=== PATIENT | male | born 1965 | race Caucasian/White ===

== ENCOUNTER 2016-09-27 22:16 | Emergency (ER) | payer BC ==
[2016-09-27 22:59] LABS: ABSOLUTE BASOPHIL COUNT 0 /CUMM (0.0-0.2); ABSOLUTE EOSINOPHIL COUNT 0 /CUMM (0.0-0.7); ABSOLUTE GRANULOCYTE CT 11.1 /CUMM (1.4-6.5); ABSOLUTE LYMPH COUNT 0.7 /CUMM (1.2-3.4); BASOPHIL % 0.1 % (0.0-2.0); EOSINOPHIL % 0.1 % (0-5); MEAN CORPUSCULAR HGB 30.1 PG (27.0-31.0); MEAN CORPUSCULAR HGB CONC 34.2 G/DL (33.0-37.0); MEAN CORPUSCULAR VOLUME 87.8 FL (80.0-94.0); MEAN PLATELET VOLUME 8.5 FL (7.4-10.4); PLATELET COUNT 188 /CUMM (130-400); RBC DISTRIBUTION WIDTH 12.4 % (11.5-14.5); RED BLOOD CELL CT 5.01 /CUMM (4.70-6.10); WHITE BLOOD CELL COUNT 12.8 /CUMM (4.8-10.8)
--- NOTE | 2016-09-27 23:32 | ED GI/GU/ABDOMINAL COMPLAINT ---
History of Present Illness General Chief Complaint: Abdominal Pain/Flank Pain Stated Complaint: " LT FLANK RADIATES TO GROIN,+N, X3DAYS" Source: patient, family, old records Exam Limitations: no limitations Vital Signs & Intake/Output Vital Signs & Intake/Output Vital Signs Date Time Temp Pulse Resp B/P Pulse O2 O2 Flow FiO2 Ox Delivery Rate 09/28 0020 Room Air 09/27 2222 97.9 114 22 168/103 97 Room Air ED Intake and Output 09/28 0000 09/27 1200 Intake Total 1000 Output Total Balance 1000 Intake, IV 1000 Patient 175 lb Weight Allergies Coded Allergies: No Known Allergies (09/27/16) Triage Note: PER PT PAIN TO L FLANK RADIATING TO GROIN X 3 DAYS HX OF KIDNEY STONES, X 3 DAYS. Triage Nurses Notes Reviewed? yes Onset: 4 days Duration: day(s):, continues in ED, waxing and waning Timing: recent history Quality/Severity: aching, moderate, sharpness, severe Location: left flank Radiation: groin Activities at Onset: none Prior Abdominal Problems: similar symptoms Past Sexual History: Unobtainable at this time No Modifying Factors: none Associated Symptoms: abdominal pain, diaphoresis, loss of appetite, nausea/ vomiting HPI: 4 days prior to admission patient complains of left flank pain described as moderate to severe sharp waxing and waning radiating to groin associated with nausea similar to previous kidney stone pain. He denies fever chills chest pain cough shortness of breath vomiting diarrhea headache dysuria rash bleeding. Past History Travel History Traveled to [place] past 21 day No Medical History Any Pertinent Medical History? see below for history Neurological: NONE EENT: NONE Cardiovascular: NONE Respiratory: NONE Gastrointestinal: NONE Hepatic: NONE Renal: nephrolithiasis Musculoskeletal: NONE Psychiatric: NONE Endocrine: NONE Surgical History Surgical History: non-contributory Psychosocial History What is your primary language Chilean Tobacco Use: Never used Family History Hx Contributory? No Review of Systems Review of Systems Constitutional: Reports: no symptoms. EENTM: Reports: no symptoms. Respiratory: Reports: no symptoms. Cardiovascular: Reports: no symptoms. GI: Reports: see HPI, abdominal pain, nausea. Genitourinary: Reports: no symptoms. Musculoskeletal: Reports: no symptoms. Skin: Reports: no symptoms. Neurological/Psychological: Reports: no symptoms. Hematologic/Endocrine: Reports: no symptoms. Immunologic/Allergic: Reports: no symptoms. All Other Systems: Reviewed and Negative Physical Exam Physical Exam General Appearance: well developed/nourished, alert, awake, anxious, moderate distress, thin Head: atraumatic, normal appearance Eyes: Bilateral: normal appearance, PERRL, EOMI, normal inspection. Ears, Nose, Throat, Mouth: hearing grossly normal, moist mucous membrane Neck: normal inspection, supple, full range of motion, normal alignment Respiratory: normal breath sounds, chest non-tender, no respiratory distress, quiet respiration, lungs clear Cardiovascular: regular rate/rhythm, normal peripheral pulses, norml femoral pulses equa Peripheral Pulses: 4+ carotid (R), 4+ carotid (L) Gastrointestinal: normal bowel sounds, soft, non-tender, no organomegaly Male Genitals: normal genitalia Back: normal inspection, normal range of motion Extremities: normal range of motion, no ligament instability Neurologic/Psych: no motor/sensory deficits, awake, alert, oriented x 3, normal gait, normal mood/affect, 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 No Severe Sepsis Present: No Septic Shock Present: No Progress Differential Diagnosis: diverticulitis, gastritis, ureterolithiasis, UTI/pyelo Plan of Care: Orders Procedure Date/time Status URINALYSIS 09/27 2237 Complete COMPREHENSIVE METABOLIC PANEL 09/27 2237 Complete CBC WITHOUT DIFFERENTIAL 09/27 2237 Complete Current Medications Sig/Aditya Start time Last Medication Dose Stop Time Status Admin Morphine Sulfate 4 MG ONCE ONE 09/28 013 UNVr (Morphine) 09/28 0131 Laboratory Tests 09/28/16 0025: Urinalysis MOD H, Urine Color YEL, Urine Clarity HAZY H, Urine pH 5.5, Ur Specific [place] >= 1.030, Urine Protein 30 H, Urine Ketones 15 H, Urine Nitrite NEG, Urine Bilirubin NEG@ICTO, Urine Urobilinogen 0.2, Ur Leukocyte Esterase NEG, Ur Microscopic SEDIMENT EXAMINED, Urine RBC >75 H, Urine WBC 3-5 H, Ur Epithelial Cells RARE, Granular Casts RARE H, Urine Mucus FEW, Urine Hemoglobin LARGE H, Urine Glucose NEG 09/27/16 2317: Anion Gap 15, Estimated GFR 35 L, BUN/Creatinine Ratio 12.0, Glucose 111 H, Calcium 9.0, Total Bilirubin 1.3, AST 23, ALT 27, Alkaline Phosphatase 51, Total Protein 6.5, Albumin 3.6, Globulin 2.9, Albumin/Globulin Ratio 1.2 09/27/167: CBC w Diff NO MAN DIFF REQ, RBC 5.01, MCV 87.8, MCH 30.1, RDW 12.4, MPV 8.5, Gran % 87.0 H, Lymphocytes % 5.3 L, Monocytes % 7.5, Eosinophils % 0.1, Basophils % 0.1, Absolute Granulocytes 11.1 H, Absolute Lymphocytes 0.7 L, Absolute Monocytes 1.0 H, Absolute Eosinophils 0, Absolute Basophils 0, PUBS MCHC 34.2 Diagnostic Imaging: Viewed by Me: CT Scan. Discussed w/RAD: CT Scan. Radiology Impression: 1. Mild left-sided hydroureteronephrosis and perinephric stranding as a result of a 6 mm stone in the proximal left ureter. 2. Small nonobstructing bilateral renal stones. 3. Gallstones. 4. Diverticular disease of colon without evidence of acute diverticulitis. Initial ED EKG: none Departure Departure Time of Disposition: 120 Disposition: HOME OR SELF CARE Condition: Stable Clinical Impression Primary Impression: Renal colic on left side Secondary Impressions: Prerenal azotemia Referrals: CHERRY PORTILLO,SAM Snider (PCP/Family) ALYSSA SHEEHAN MD Call for urology follow up Departure Forms: Customer Survey General Discharge Information Prescriptions: Current Visit Scripts Tamsulosin HCl (Flomax) 1 CAP PO DAILY #15 CAP Ibuprofen 1 TAB PO Q6PRN PRN pain #50 TAB Oxycodone HCl/Acetaminophen (Percocet 5-325 MG Tablet) 1-2 TAB PO Q6P PRN PAIN #20 TAB Ondansetron (Zofran Odt) 1 TAB SL TID PRN NAUSEA #15 TAB
--- NOTE | 2016-09-27 23:58 | CT SCAN REPORT ---
EXAMINATION: CT ABDOMEN AND PELVIS WITHOUT CONTRAST CLINICAL INFORMATION: Left flank pain. COMPARISON: None. TECHNIQUE: Multidetector volumetric imaging was performed from the superior aspect of the liver through the pubic symphysis. Sagittal and coronal reformatted images were obtained on the technologist's workstation. DLP: 312.33 mGy-cm. FINDINGS: LUNG BASES: The visualized lung bases are unremarkable. LIVER, GALLBLADDER, AND BILIARY TREE: The liver is normal in size, shape, and attenuation. No focal hepatic lesion or biliary ductal dilatation is present. The gallbladder is distended. It contains calcified and noncalcified gallstones. There are no inflammatory changes surrounding the gallbladder to suggest acute cholecystitis. PANCREAS: Unremarkable. SPLEEN: Unremarkable. ADRENAL GLANDS: Unremarkable. KIDNEYS AND URETERS: Left Kidney: There is mild left-sided hydroureteronephrosis to the level of an 6 mm stone in proximal left ureter at L3-L4 intervertebral disc space level. There is mild left perinephric fat stranding, as the result of obstruction. There is a punctate renal stone within the upper pole calyx of the left kidney as seen on axial image 25 of series 2. A 2 mm stone is seen in the lower pole calyx of the left kidney as seen on axial image 32 from series 2. The left ureter distal to this stone is decompressed. No other left ureter stone seen. Right Kidney: There is a punctate stone in the interpolar region of right kidney as seen on axial image 28/93. A 2 mm stone is seen in the lower pole calyx of right kidney as seen on axial image 31/93. No right-sided hydronephrosis. No right ureter stone. The urinary bladder is partially full. No bladder stones seen. GASTROINTESTINAL TRACT: The small and large bowel are are not dilated. Mild diverticular disease of sigmoid colon is present without evidence of acute diverticulitis. The appendix is unremarkable. ABDOMINAL WALL: No significant hernia is appreciated. LYMPH NODES: Normal. VASCULAR: Unremarkable. PELVIC VISCERA: Unremarkable. OSSEOUS STRUCTURES: Unremarkable. IMPRESSION: 1. Mild left-sided hydroureteronephrosis and perinephric stranding as a result of a 6 mm stone in the proximal left ureter. 2. Small nonobstructing bilateral renal stones. 3. Gallstones. 4. Diverticular disease of colon without evidence of acute diverticulitis.
[2016-09-28] MEDS ORDERED: PERCOCET 5-3251 EACH PO (01:23)
[2016-09-28] MEDS ORDERED: ZOFRAN ODT4 M1 SL (01:23)
[2016-09-28] MEDS ORDERED: IBUPROFEN800 M1 PO (01:23)
[2016-09-28] MEDS ORDERED: FLOMAX0.4 M1 PO (01:23)
[2016-09-28 01:28] VITALS: BP 151/97
== END 2016-09-28 01:34 ==
LOC: ERH 22:16
PROVIDERS: Emergency Medicine
DX: N23 Unspecified renal colic (principal); R79.89 Other specified abnormal findings of blood chemistry
CPT/HCPCS: 74176; 81001; 96361; 96374; 96375; 96376; J1885

== ENCOUNTER → 2016-09-30 | Day surgery (SDC) | payer BC ==
[~2016-09-30] VITALS: Ht 175.3 cm; Wt 79.4 kg
[~2016-09-30] MED LIST: FLOMAX0.4 M1 PO; IBUPROFEN800 M1 PO; PERCOCET 5-3251 EACH PO; ZOFRAN ODT4 M1 SL
--- NOTE | 2016-09-30 11:58 | Operative Report ---
Operative/Inv Procedure Report Surgery Date: 09/30/16 Name of Procedure: cysto: left ureteroscopy-laser lithotrypsy of ureter stone, retrograde pyelogram , fluoroscopy, stent insertion. Pre-Operative Diagnosis: left ureter stone obstruction with ARF Post-Operative Diagnosis: same Estimated Blood Loss: khushboo Surgeon/General Scrap Worker: ALYSSA SHEEHAN MD Anesthesia: laryngeal mask airway Specimens: left ureter stone Complications: none Condition: improved Operative/Procedure Note Note: The patient was taken to the operating room, and placed on the OR table in supine position. Timeout was performed, with the patient awake, in order to confirm correct identity, procedure, laterality, anesthesia, and other pertinent perioperative information. After adequate anesthesia and antibiotics, the patient was then placed lithotomy stirrups, draped and prepped in the usual surgical fashion. A 22 Nepali cystoscope sheath with 30 angle lens was inserted into the bladder without difficulty. Upon entering the bladder, the bladder was noted to be free of tumor free of stone. Both orifices were in their orthotopic position. The left ureter orifice was intubated with an 8fr cone-tip catheter and a retrograde pyelogram with fluoroscopy was performed revealing the 7 mm mid-left ureter stone, and proximal mild hydronephrosis. The cone-tipped catheter was removed, followed by insertion of a 0.035 Glidewire. The gluidewire was advanced into the left renal pelvis without difficulty. Correct placement of the wire was confirmed with fluoroscopy. Leaving the Glidewire in place, a flexible ureteroscope was advanced/rail-roaded over the gluidewire (with fluoroscopic visualization) and advanced into the bladder, and then into the left ureter, without significant difficulty. The ureteroscope was ealily advanced/inserted under direct visualization. The ureteroscope reached the area of the left mid-ureter, and the ureteral stone was visualized. Under direct visualization, the 400 g holmium YAG laser fiber was inserted through the ureteroscope. With the laser fiber in direct contact with the stone, laser lithotripsy was performed in order to pulverize the stone into multiple tiny fragments. The fragments were extracted by the [place] and sent to pathology. At this point, the ureteroscope was then gently advanced into the left renal pelvis without difficulty. NO other stones, nor any tumor, was visualized in the renal pelvis/all calyxes. The entire length of the ureter was aslo visualize carefully on the way out with the ureteroscope, and the same findings of, no stones, or tumor was confirmed. The bladder was then drained after the ureteroscope was removed. The 22 Nepali cystoscope sheath with a 30 angle lens was then reinserted into the bladder without difficulty. The left orifice was intubated with a 0.035 Glidewire, and advanced into left renal pelvis without difficulty. Over this Glidewire, a 6 x 22 Bard onlay stent was inserted and advanced into the left renal pelvis without difficulty. With the proximal coil seen in the renal pelvis fluoroscopically, and the distal coil seen in the bladder cystoscopically , the Glidewire was removed. The stent remained in proper place under fluoroscopic and cystoscopic visualization. The bladder was then drained, and the cystoscope was removed. 2% lidocaine Urojet was instilled filled into the urethra, and clamped for 5 minutes. The patient tolerated the procedure well was then taken to the recovery room in satisfactory condition. After discharge with abx. and pain meds, the patient is insturcted to have follow renal US, and post-op visit in 2-4 weeks. Findings: 7mm left mid ureter stone. Discharge Disposition: Same Day Admissions Additional Comments: f/u 1 week for stent removal. CC: ALYSSA SHEEHAN MD
--- NOTE | 2016-09-30 18:14 | RADIOLOGY REPORT ---
EXAMINATION: XR ABDOMEN CLINICAL INDICATION: Left hydronephrosis secondary to a 6 Tess in the proximal ureter. COMPARISON: CT of the abdomen pelvis dated 09/27/2016. TECHNIQUE: C-arm fluoroscopy was provided needle wire to assist Dr. Ryan Katz in the operating room. Spot films were obtained for documentation. FINDINGS: The first image demonstrates a cystoscope in place with a wire advanced into the left ureter. Subsequent films demonstrate advancement of a ureteral stent which is ultimately coiled in the left renal pelvis. According to the requisition, laser lithotripsy was also performed. IMPRESSION: C-arm films documenting a procedure performed by Dr. Katz.
== END ==
LOC: STS 07:27
DX: N13.2 Hydronephrosis with renal and ureteral calculous obstruction (principal); N17.9 Acute kidney failure, unspecified
CPT/HCPCS: 74000; 82355; C2617; J0131; J2250